=== PATIENT | male | born 1960 | race Caucasian/White ===

== ENCOUNTER 2024-03-06 09:29 | Emergency (ER) | payer MEDICARE, SELFPAY ==
[2024-03-06 09:30] VITALS: BP 159/101; PULSE 82; RESP 16; TEMP 36.2; O2SAT 97; BMI 26.5
[2024-03-06 10:30] VITALS: BP 126/76; PULSE 78; RESP 16; TEMP 36.4; O2SAT 99
--- NOTE | 2024-03-06 10:35 | EDS_ITS ---
HPI History of Present Illness Chief Complaint: Rash Informant: patient Narrative Narrative: 63-year-old male presenting to the emergency room with rash and concern for corneal abrasion. Patient states that last Thursday began to have discomfort around his posterior right ear that radiated up to the side of his head and then he had an eruption of a rash in his scalp and forehead. States he may have scrub too hard on his forehead and caused scabbing. He states that he has 2 artificial lens in each eye. He states that he has a rash on the upper eyelid. He states when he closes his eye he feels like there is gravel in his eye. He does not have a local director of clinical trials but states he had his eye surgeries in [place]. He is not a diabetic. No change in hearing. PFSH PFS Home Medications ?Medication ?Instructions ?Recorded ?Last Taken ?Type omeprazole 20 mg capsule,delayed 20 mg PO DAILY 03/06/24 02/21/24 History release prednisone 20 mg tablet 60 mg (3 x 20 mg) PO DAILY #15 03/06/24 Unknown Rx TABLETS valacyclovir 1 gram tablet 1,000 mg PO TID 7 days #21 tabs 03/06/24 Unknown Rx Allergy/AdvReac Type Severity Reaction Status Date / Time No Known Allergies Allergy Verified 03/06/24 09:49 Social History Smoking Status: Former smoker ROS ROS ED Constitutional Constitutional ED: Denies chills, fever(s) or weight loss Eyes Eyes: Reports other Details: Eyelid rash swelling foreign body like sensation in eye when blinking ; Denies blurry vision, change in vision or diplopia ENT ENT ED: Denies ear pain, rhinorrhea or sore throat Cardiovascular Cardiovascular: Denies chest pain, orthopnea, palpitations or racing heartbeat Respiratory/Chest Respiratory/Chest: Denies cough, dyspnea or orthopnea Gastrointestinal Gastrointestinal: Denies abdominal pain, diarrhea, nausea or vomiting Genitourinary Genitourinary ED: Denies dysuria, hematuria or urinary frequency Musculoskeletal Musculoskeletal: Denies arthralgias, back pain or myalgias Integumentary Reports rash; Denies abscess Neurologic Neurologic: Denies headache(s) or weakness Psychiatric Psychiatric: Denies anxiety, depression, suicidal ideation or suicidal thoughts Endocrine Endocrinology: Denies polydipsia, polyphagia or polyuria Allergic/Immunologic Allergic/Immunologic ED: Denies mouth swelling, tongue swelling or urticaria EXAM Physical Exam Const Vital Signs: 03/06/24 09:30 Temperature 97.1 F L Temperature Source Temporal Pulse Rate 82 Respiratory Rate 16 Blood Pressure 159/101 H Blood Pressure Mean 120 Pulse Ox 97 Oxygen Delivery Method Room Air Positive well nourished and well developed General Appearance ED: well developed HEENT Reports normocephalic, head/scalp atraumatic and moist mucous membranes HEENT Narrative: Patient has a vesicular like rash starting in the midline extending to the right forehead and up onto the anterior half of the scalp. Several of these are scabbed over. There is a cluster of lesions on the right eyelid that have some coalescing erythema around them but no definitive signs of cellulitis. There are some mild eyelid edema. I do not see any lesions on the tip of the nose or in the ear canal or tympanic membrane. Eyes PERRL and EOMs intact bilaterally Eyes Narrative: I do not see any dendritic lesions on fluorescein staining with slit lamp. I do not appreciate conjunctival injection. No foreign bodies appreciated under eyelids. Neck no lymphadenopathy, supple and no JVD Resp normal respiratory effort and clear to auscultation bilaterally Cardio regular rate, regular rhythm and no murmurs GI normal to inspection, nondistended, normoactive bowel sounds and non-tender Palpation: soft Back/Spine no CVA tenderness and normal ROM Extremity normal to inspection General Extremety ED: Negative for edema General Extremity: Negative for edema Neuro oriented x3 and CN's II-XII intact bilaterally Sensorium / Orientation: alert Motor Exam: strength 5/5 throughout Psych mental status grossly normal Mood & Affect: Negative for depressed or tearful Skin no rashes or lesions noted and no wounds MDM MDM MDM Narrative Medical decision making narrative: Differential diagnosis includes but not limited to herpes zoster herpes ocular ophthalmicus [place] periorbital cellulitis orbital cellulitis intraocular infection/pathology Patient does not appear to have dendritic lesions or definitive ocular involvement at this time. I will be placing him on valacyclovir 3 times daily as well as prednisone. I have provided him with local ophthalmology for follow- up. Would recommend evaluation by them soon as possible. Patient understands plan and return instructions History & Record Review Discussion w/independent historian: Patient Discharge Plan Triage Chief Complaint: Rash Other Complaint: Eye Problem ED Provider: Ethan Bassett Dx/Rx/DC Orders Clinical Impression: Herpes zoster, Acute facial pain Instructions: ED Shingles (Herpes Zoster) Prescriptions: New valacyclovir 1 gram tablet 1,000 mg PO TID 7 Days Qty: 21 0RF prednisone 20 mg tablet 60 mg PO DAILY Qty: 15 0RF No Action omeprazole 20 mg capsule,delayed release(DR/EC) 20 mg PO DAILY Primary Care Provider: NOT,DEFINED Referrals: Alcon Tripathi MD [Med Staff - Active Staff] - As soon as possible NOT,DEFINED [Primary Care Provider] - Print Language: Arabic Disposition Disposition: Home, Self Care
[2024-03-06] MEDS: Fluorescein 1 MG STRIP 1 STRIP EACH EYE (10:52)
== END 2024-03-06 10:54 | disposition home or self-care (01) ==
LOC: ED 10:42
PROVIDERS: Emergency Provider Emergency Medicine; PCP Internal Medicine; Visit Provider Emergency Medicine
DX: B02.9 Zoster without complications (principal); R51.9 Headache, unspecified; Z87.891 Personal history of nicotine dependence; Z79.899 Other long term (current) drug therapy
CPT/HCPCS: 99283